=== PATIENT | female | born 1995 | race Caucasian/White ===

== ENCOUNTER 2017-12-28 21:17 | Emergency (ER) | payer MEDICAID ==
[~2017-12-28] VITALS: Ht 149.9 cm; Wt 86.7 kg
[2017-12-28 23:50] VITALS: BP 111/65
== END 2017-12-29 00:16 | disposition home or self-care (01) ==
LOC: ER 21:17
DX: J02.9 Acute pharyngitis, unspecified (principal)
CPT/HCPCS: 87070; 87430; 99284

== ENCOUNTER 2018-09-20 23:01 | Emergency (ER) | payer MEDICAID ==
[~2018-09-20] VITALS: Ht 160 cm; Wt 86.9 kg
[2018-09-21] VITALS: BP 120/77
== END 2018-09-21 00:02 | disposition home or self-care (01) ==
LOC: ER 23:01
DX: M54.6 Pain in thoracic spine (principal); Z98.890 Other specified postprocedural states
CPT/HCPCS: 99282